=== PATIENT | female | born 1975 | race Caucasian/White ===

== ENCOUNTER 2022-02-16 12:27 | Outpatient (CLI) | payer SELFPAY ==
[2022-02-16 23:39] LABS: Chlamydia DNA Amplified* NOT DETECTED (No Detected); GC DNA Amplified* NOT DETECTED (No Detected)
== END 2022-02-16 12:28 | disposition home or self-care (01) ==
LOC: NFLDUCREF 12:33
PROVIDERS: Visit Provider Student in an Organized Health Care Education/Training Program
DX: R30.0 Dysuria (principal)
CPT/HCPCS: 87491; 87591

== ENCOUNTER 2023-10-09 15:49 | Outpatient (CLI) | payer OTHER, SELFPAY ==
[2023-10-09 21:40] LABS: Chlamydia DNA Amplified* NOT DETECTED (No Detected); GC DNA Amplified* NOT DETECTED (No Detected)
== END 2023-10-09 15:50 | disposition home or self-care (01) ==
LOC: NFLDREF 15:50
PROVIDERS: Visit Provider Obstetrics & Gynecology
DX: N94.10 Unspecified dyspareunia (principal)
CPT/HCPCS: 87491; 87591